=== PATIENT | male | born 1945 | race Caucasian/White ===

== ENCOUNTER 2017-05-14 15:23 | Inpatient (IN) | payer OTHER ==
[~2017-05-14] VITALS: Ht 177.8 cm; Wt 90.6 kg
--- NOTE | ~2017-05-14 | HC ---
[facility] [place] [address] CONSULTATION Name: KOFI REBOLLAR Room #: 203-P [facility] [place] ..#: [id number] Admission: 05/14/17 Attend Phys: Aiden Moreau MD Discharge: 05/19/17 Date of : 47 Report #: [id number] THIS REPORT FOR: //name// CC: Aiden Moreau REASON FOR CONSULTATION: Acute kidney injury. REASON FOR PRESENTATION: Weakness, falls, abnormal labs. HISTORY OF PRESENT ILLNESS: A 71-year-old with past medical history of diabetes mellitus, memory impairment, hypertension. He was discharged from [facility] few days ago. He was transferred to [facility]. They checked his labs and they reported that his kidney function is above his usual. He thus was transferred to the emergency room. No nonsteroidal anti-inflammatory medications. Medications reviewed with his and that did not include any nonsteroidal anti-inflammatory medications, LINDSEY inhibitor or potassium. On presentation, he was found to have an obstructive uropathy with an acute kidney injury related to bladder outlet obstruction associated with hyperkalemia and significantly elevated BUN and creatinine at 120 and 10.3. Numbers have already started to improve after placing a Mckee catheter. I am being consulted to manage his acute kidney injury. PAST MEDICAL HISTORY: 1. Diabetes mellitus. 2. Dementia. 3. Memory loss. ALLERGIES: SULFA. MEDICATIONS: 1. Prozac. 2. Atorvastatin. 3. Insulin. SOCIAL HISTORY: He lives in the [facility]. No drug or alcohol abuse. REVIEW OF SYSTEMS: The patient is not able to provide us with his review of systems; however, the review of system was obtained from his and documented and this is what was positive: CONSTITUTIONAL: No fever or chills, but significant weakness. PULMONARY: No cough or hemoptysis. CARDIOVASCULAR: No chest pain or palpitation. GENITOURINARY: Denies symptoms. GASTROINTESTINAL: Decreased p.o. intake. SKIN: No rash or ulcerations. [facility] [address] [place] [address] CONSULTATION Name: KOFI REBOLLAR Room #: 203-P [facility] [place] [facility].#: [id number] Admission: 05/14/17 Attend Phys: Aiden Moreau MD Discharge: 05/19/17 Date of : 47 Report #: [id number] PAST SURGICAL HISTORY: Right below-knee amputation. PHYSICAL EXAMINATION: GENERAL: The patient is alert, disoriented. VITAL SIGNS: Blood pressure 139/75, pulse rate 81, temperature 36.9. HEAD AND NECK: No jugular venous distention, no bruit, no thyromegaly. CHEST: Clear to auscultation bilaterally. CARDIOVASCULAR: Regular with no rub detected. ABDOMEN: Soft, nontender. Mckee catheter is in place. Bladder is somewhat distended. LOWER EXTREMITIES: Right below-knee amputation. ASSESSMENT, IMPRESSION AND PLAN: 1. Acute kidney injury due to obstruction. 2. Hyperkalemia. 3. Acute kidney injury is related to the bladder outlet obstruction with a significantly distended bladder on the CT scan yesterday. He also had some mild decrease of hydronephrosis on the imaging that were obtained yesterday. Ureters were also dilated. 1. Continue with the IV fluid. 2. Continue with the Mckee drainage. 3. Potassium has already rectified. 4. Start Flomax. 5. We will continue to follow along. <ELECTRONICALLY SIGNED> By: Eugene Alonzo MD 05/20/17917 4 12 Eugene Alonzo MD /nt
--- NOTE | ~2017-05-14 | EKG ---
[address] [address] ELECTROCARDIOGRAM REPORT Name: SMOOTHKOFI Brenda Room #: 203-P ADM IN M.R.#: [id number] Admission: 05/14/17 Attend Phys: Aiden Moreau MD Discharge: Date of : 47 Report #: [id number] THIS REPORT FOR: //name// [facility] ED Test Date: 2017-05-14 Test Time: 15:41:00 Pat Name: KOFI REBOLLAR Department: Room: 203 Gender: M Sap Technical Developer: MZOOK : 1945 Requested By: Nirav Vallecillo Order Number: [id number] MD: Steve Nix Measurements Intervals Delton Rate: 92 P: 54 PA: 145 QRS: 53 QRSD: 99 T: 9 QT: 348 QTc: 431 Interpretive Statements Sinus rhythm Atrial premature complexes No previous ECG available for comparison Electronically Signed On 05-14-2017 21:55:12 GAME DESIGN INSTRUCTOR by Steve Nix [email or web address] <ELECTRONICALLY SIGNED> By: Steve Nix MD 05/14/17 [id number] Steve Nix MD /RYANN
[2017-05-14 15:24] VITALS: BP 154/81
[2017-05-14 15:44] LABS: HEMATOCRIT 32.9 % (42.0-52.0); HEMOGLOBIN 10.7 gm/dL (14.0-18.0); MCH 31.6 pg (26.0-34.0); MCHC 32.7 g/dL (28.0-37.0); MCV 96.5 fL (80.0-100.0); PLATELET COUNT 172 thou/uL (150-400); RDW 14.2 % (10.5-14.5); WBC 10.6 thou/uL (4.0-11.0)
[2017-05-14] MEDS ORDERED: PROZAC20 MG PO (15:47)
[2017-05-14] MEDS ORDERED: NEURONTIN 300300 M1 PO (15:47)
[2017-05-14 15:48] LABS: MANUAL DIFF YES
[2017-05-14] MEDS ORDERED: DUONEB 2.5-0.5 M3 ML INH (15:48)
[2017-05-14] MEDS ORDERED: NORCO 5-325 TA1 EACH PO (15:48)
[2017-05-14] MEDS ORDERED: HUMALOG100 UNIT/2 SUBQ (15:48)
[2017-05-14 15:49] LABS: CALCIUM 8.8 mg/dL (8.5-10.1); CREATININE 10.3 mg/dL (0.7-1.3)
[2017-05-14] MEDS ORDERED: MULTIVITAMINS1 EAC7 PO (15:49)
[2017-05-14] MEDS ORDERED: LEVEMIR SUBQ (15:49)
[2017-05-14] MEDS ORDERED: MIRALAX17 GM PO (15:49)
[2017-05-14] MEDS ORDERED: ZANTAC 150MG T150 MG PO (15:50)
[2017-05-14 15:55] LABS: ALBUMIN 2.2 g/dL (3.4-5.0); TOTAL BILIRUBIN 0.3 mg/dL (<0.1-1.0); TOTAL PROTEIN 6.6 g/dL (6.4-8.2)
[2017-05-14 15:57] LABS: POTASSIUM 6.2 mmol/L (3.5-5.1)
[2017-05-14 16:16] LABS: ABSOLUTE NEUTROPHILS 9.4 thou/uL (1.4-8.2); TOTAL CELL COUNT 100
[2017-05-14 16:17] LABS: BURR CELLS 4+; OVALOCYTES 2+
[2017-05-14 16:18] LABS: ANISOCYTOSIS 1+; MICROCYTES 1+; POLYCHROMASIA SLIGHT
[2017-05-14] MEDS ORDERED: LIPITOR10 MG PO (16:25)
[2017-05-14] MEDS ORDERED: TOUJEO SOL300 UNIT/1 SUBQ (16:26)
[2017-05-14 16:52] VITALS: BP 139/78
[2017-05-14 16:52] LABS: URINE BILIRUBIN NEGATIVE (Negative); URINE BLOOD 2+ (Negative); URINE COLOR YELLOW; URINE GLUCOSE-RANDOM* 3+ (Negative); URINE KETONES NEGATIVE (Negative); URINE LEUKOCYTES-REFLEX NEGATIVE (Negative); URINE PROTEIN (DIPSTICK) 2+ (Negative); URINE UROBILINOGEN 0.2 E.U./dl (0.2-1.0)
[2017-05-14 17:09] LABS: SQUAMOUS 0-3 Few /LPF (0-3); URINE RBC 0-2 Rare /HPF (0-2)
[2017-05-14 17:10] LABS: CASTS None Seen /LPF (None Seen); CRYSTALS None Seen /LPF (None Seen); URINE WBC-REFLEX None Seen /HPF (0-5)
[2017-05-14 19:59] VITALS: BP 159/90
[2017-05-15] VITALS (8 sets, daily range): BP systolic 136–175; BP diastolic 72–98
[2017-05-15 04:09] LABS: ABSOLUTE NEUTROPHILS 5.4 thou/uL (1.4-8.2); BASOPHILS 0.2 % (0.0-2.0); CHOLESTEROL 122 mg/dL (<200); EOSINOPHILS 1.2 % (0.0-3.0); HDL CHOLESTEROL 35 mg/dL (>40); HEMATOCRIT 29.2 % (42.0-52.0); HEMOGLOBIN 9.8 gm/dL (14.0-18.0); LDL CHOLESTEROL 63 mg/dL (<100); LYMPHOCYTES 11.8 % (24.0-44.0); MCH 31.7 pg (26.0-34.0); MCHC 33.5 g/dL (28.0-37.0); MCV 94.6 fL (80.0-100.0); MONOCYTES 10.6 % (1.0-8.0); PLATELET COUNT 151 thou/uL (150-400); POLYS 76.2 % (36.0-66.0); RBC 3.09 mil/uL (4.50-6.00); TC:HDL 3.5 Ratio (Not establshd); TRIGLYCERIDE 123 mg/dL (<150); VLDL 25 mg/dL (<40); WBC 7.1 thou/uL (4.0-11.0)
[2017-05-15 04:10] LABS: CALCIUM 8.7 mg/dL (8.5-10.1); TROPONIN-I 0.04 ng/mL (<0.06)
[2017-05-15 04:17] LABS: POTASSIUM 3.7 mmol/L (3.5-5.1)
[2017-05-15 04:19] LABS: MANUAL DIFF NO
[2017-05-15 04:20] LABS: SERUM ASSESSMENT Clear
[2017-05-16 03:46] VITALS: BP 135/65
[2017-05-16 04:09] LABS: HEMATOCRIT 29.6 % (42.0-52.0); HEMOGLOBIN 9.7 gm/dL (14.0-18.0); MCH 31.3 pg (26.0-34.0); MCHC 32.9 g/dL (28.0-37.0); MCV 95.2 fL (80.0-100.0); RBC 3.11 mil/uL (4.50-6.00); WBC 6.8 thou/uL (4.0-11.0)
[2017-05-16 04:25] LABS: CALCIUM 8.4 mg/dL (8.5-10.1); PHOSPHORUS 2.3 mg/dL (2.5-4.9); POTASSIUM 3.9 mmol/L (3.5-5.1)
[2017-05-16 04:26] LABS: CREATININE 1.3 mg/dL (0.7-1.3)
[2017-05-16 07:15] VITALS: BP 132/75
[2017-05-16 11:25] VITALS: BP 173/94
[2017-05-16 15:30] VITALS: BP 135/70
[2017-05-16 19:17] VITALS: BP 155/90
[2017-05-16 23:42] VITALS: BP 157/89
[2017-05-17 04:02] VITALS: BP 176/93
[2017-05-17 07:30] VITALS: BP 192/93
[2017-05-17 11:30] VITALS: BP 158/85
[2017-05-17 15:45] VITALS: BP 177/92
[2017-05-17 19:25] VITALS: BP 152/84
[2017-05-18] VITALS (7 sets, daily range): BP systolic 130–162; BP diastolic 72–84
[2017-05-19 03:44] LABS: HEMATOCRIT 24.8 % (42.0-52.0); HEMOGLOBIN 8.5 gm/dL (14.0-18.0); MCH 32.2 pg (26.0-34.0); MCHC 34.2 g/dL (28.0-37.0); MCV 94.2 fL (80.0-100.0); RBC 2.63 mil/uL (4.50-6.00); RDW 13.7 % (10.5-14.5); WBC 6.9 thou/uL (4.0-11.0)
[2017-05-19 03:55] LABS: CREATININE 0.9 mg/dL (0.7-1.3); POTASSIUM 3.6 mmol/L (3.5-5.1)
[2017-05-19 04:48] VITALS: BP 159/86
[2017-05-19 07:20] VITALS: BP 189/98
[2017-05-19] MEDS ORDERED: FLOMAX0.4 MG PO (11:31)
[2017-05-19 11:35] VITALS: BP 152/85
== END 2017-05-19 13:50 | DRG 698 ==
LOC: ER 15:23 → EROBS 16:39 → 2N 16:39
PROVIDERS: Hospitalist; Nurse Practitioner; Physician Assistant
PROC: 0T9B70Z Drainage of Bladder with Drainage Device, Via Natural or Artificial Opening (ICD-10-PCS; principal; 2017-05-14)
DX: N32.0 Bladder-neck obstruction (principal); N17.0 Acute kidney failure with tubular necrosis; E43 Unspecified severe protein-calorie malnutrition; S22.31XA Fracture of one rib, right side, initial encounter for closed fracture; N13.30 Unspecified hydronephrosis; E87.5 Hyperkalemia; I10 Essential (primary) hypertension; F03.90 Unspecified dementia, unspecified severity, without behavioral disturbance, psychotic disturbance, mood disturbance, and anxiety; E11.65 Type 2 diabetes mellitus with hyperglycemia; R31.9 Hematuria, unspecified; E86.0 Dehydration; K59.00 Constipation, unspecified; S91.302A Unspecified open wound, left foot, initial encounter; E78.5 Hyperlipidemia, unspecified; D64.9 Anemia, unspecified; E11.51 Type 2 diabetes mellitus with diabetic peripheral angiopathy without gangrene; K21.9 Gastro-esophageal reflux disease without esophagitis; G56.00 Carpal tunnel syndrome, unspecified upper limb; Z98.49 Cataract extraction status, unspecified eye; Z88.2 Allergy status to sulfonamides; Z89.511 Acquired absence of right leg below knee; Z79.899 Other long term (current) drug therapy; Z79.4 Long term (current) use of insulin; Z68.28 Body mass index [BMI] 28.0-28.9, adult; W18.39XA Other fall on same level, initial encounter; Y93.89 Activity, other specified; Y92.89 Other specified places as the place of occurrence of the external cause; Y99.8 Other external cause status; Z53.29 Procedure and treatment not carried out because of patient's decision for other reasons
CPT/HCPCS: 10081